=== PATIENT | female | born 1960 | race Caucasian/White ===

== ENCOUNTER 2016-10-24 13:24 | Emergency (ER) | payer MEDICAID ==
[~2016-10-24] VITALS: Ht 162.6 cm; Wt 110.2 kg
[2016-10-24 14:10] VITALS: BP_SYST 150
--- NOTE | 2016-10-24 14:17 | NUR ---
Patient to ER bed 6 for evaluation. Remained in W/C Report given to Ana.
--- NOTE | 2016-10-24 14:23 | NUR ---
Pt slipped on a toy this morning and twisted her left ankle, pt denies falling, loss of consciousness. Pt has swelling and redness to the left ankle and toes. Pt states she was walking earlier this morning and then took off her shoes and could not walk after that. No other injuries/complaints per pt or noted.
--- NOTE | 2016-10-24 14:25 | NUR ---
ER at bedside examining patient.
[2016-10-24] MEDS ORDERED: KETOROLAC TROMETHAMINE 60 MG/2 ML VIAL IM ONE (14:45)
--- NOTE | 2016-10-24 15:46 | NUR ---
Patient given written and verbal discharge instructions and verbalizes understanding. ER MD discussed with patient the results and treatment provided. Patient in stable condition. ID arm band removed. Rx of motrin given. Patient educated on pain management and to follow up with PMD. Pain Scale 2. Opportunity for questions provided and answered.
[2016-10-24 15:47] VITALS: BP_SYST 145
== END 2016-10-24 15:47 | disposition home or self-care (01) ==
LOC: SED 13:24
DX: S93.492A Sprain of other ligament of left ankle, initial encounter (principal); J45.909 Unspecified asthma, uncomplicated; K21.9 Gastro-esophageal reflux disease without esophagitis; E11.9 Type 2 diabetes mellitus without complications; I10 Essential (primary) hypertension; Z88.1 Allergy status to other antibiotic agents; Z88.2 Allergy status to sulfonamides; Z88.0 Allergy status to penicillin; W22.8XXA Striking against or struck by other objects, initial encounter; Y93.89 Activity, other specified; Y92.89 Other specified places as the place of occurrence of the external cause; Y99.8 Other external cause status
CPT/HCPCS: 73630; 96372; 99284; J1885

== ENCOUNTER 2017-10-14 13:02 | Emergency (ER) | payer MEDICAID ==
[~2017-10-14] VITALS: Ht 162.6 cm; Wt 116.1 kg
[2017-10-14 13:04] VITALS: BP_SYST 146
--- NOTE | 2017-10-14 13:06 | NUR ---
Placed in room 02 . Placed on cardiac rehabilitation specialist, blood pressure machine and pulse oximeter. To gown for exam. Side rails up.
--- NOTE | 2017-10-14 13:12 | NUR ---
Dr Mack at bedside examining patient
--- NOTE | 2017-10-14 13:13 | NUR ---
Pt brought by self, A&Ox4, pt presents to ER with intermittent cough ,SOB and pain on L arm, VS WNL, respirations even and unlabored, cap refill <3, afebrile.
[2017-10-14] MEDS ORDERED: ASPIRIN 81 MG TAB.CHEW PO ONE (13:15)
[2017-10-14] MEDS ORDERED: NITROGLYCERIN 1 INCH (GM) OINT. TP ONE (13:15)
[2017-10-14 13:36] LABS: BASOPHILS # (AUTO) 0.1 K/uL (0.0-0.2); BASOPHILS % (AUTO) 0.7 % (0.0-2.0); EOSINOPHILS # (AUTO) 0.2 K/uL (0.0-0.4); EOSINOPHILS % (AUTO) 2.4 % (0.0-4.0); HEMATOCRIT 44.8 % (36-48); HEMOGLOBIN 14.3 g/dL (12.0-16.0); LYMPHOCYTES # (AUTO) 1.8 K/uL (1.0-5.5); LYMPHOCYTES % (AUTO) 18.7 % (20.5-51.5); MEAN CORPUSCULAR HEMOGLOBIN 27 pg (27-31); MEAN CORPUSCULAR HGB CONC 32 % (32-36); MEAN CORPUSCULAR VOLUME 83 fL (79.0-98.0); MONOCYTES # (AUTO) 0.7 K/uL (0.0-1.0); MONOCYTES % (AUTO) 6.9 % (1.7-9.3); NEUTROPHILS # (AUTO) 6.8 K/uL (1.8-7.7); NEUTROPHILS % (AUTO) 71.3 % (40.0-70.0); PLATELET COUNT (AUTO) 299 K/uL (130-430); RED CELL DISTRIBUTION WIDTH 14.6 % (9.0-15.0); WHITE BLOOD COUNT (AUTO) 9.6 K/uL (4.8-10.8)
[2017-10-14 13:51] LABS: PROTHROMBIN TIME 9.9 SECS (9.5-12.5)
[2017-10-14 13:53] LABS: CALCIUM 9.7 mg/dL (8.4-11.0); CREATININE 0.56 mg/dL (0.55-1.30); POTASSIUM 3.7 mmol/L (3.5-5.1)
[2017-10-14 14:00] LABS: ALBUMIN 3.9 g/dL (3.4-4.8); TOTAL BILIRUBIN 0.5 mg/dL (0.0-1.0)
--- NOTE | 2017-10-14 14:07 | NUR ---
Pt ambulated to bathroom to collect urine
[2017-10-14] MEDS ORDERED: ALBUTEROL SULFATE 0.083% 2.5 MG/3 ML VIAL.NEB INH ONE (15:00)
--- NOTE | 2017-10-14 15:10 | NUR ---
Pt on stable condition, report given to Ana GRADY
[2017-10-14 15:16] LABS: BILIRUBIN,URINE NEGATIVE (NEGATIVE); BLOOD, URINE 1+ (NEGATIVE); CLARITY/URINE CLEAR (CLEAR); COLOR,URINE YELLOW (YELLOW); GLUCOSE,URINE NEGATIVE (NEGATIVE); KETONES,URINE NEGATIVE (NEGATIVE); LEUKOCYTE ESTERASE ,URINE 2+ (NEGATIVE); NITRITE, URINE NEGATIVE (NEGATIVE); PH,URINE 6.5 (5.0-8.0); PROTEIN URINE NEGATIVE (NEGATIVE); UROBILINOGEN,URINE 0.2 (0.2-1.0)
[2017-10-14 15:38] VITALS: BP_SYST 145
--- NOTE | 2017-10-14 15:38 | NUR ---
Patient given written and verbal discharge instructions and verbalizes understanding. ER MD discussed with patient the results and treatment provided. Patient in stable condition. ID arm band removed. IV catheter removed intact and dressing applied, no active bleeding. Rx of econazole given. Patient educated on pain management and to follow up with PMD. Pain Scale 0. Opportunity for questions provided and answered.
[2017-10-14 16:05] LABS: BACTERIA,URINE MODERATE /HPF (None Seen); MUCUS,URINE 2+ /LPF (None Seen)
== END 2017-10-14 15:38 | disposition home or self-care (01) ==
LOC: SED 13:02
DX: J06.9 Acute upper respiratory infection, unspecified (principal); B35.9 Dermatophytosis, unspecified; K21.9 Gastro-esophageal reflux disease without esophagitis; J45.909 Unspecified asthma, uncomplicated; E11.9 Type 2 diabetes mellitus without complications; I10 Essential (primary) hypertension; Z90.49 Acquired absence of other specified parts of digestive tract; Z88.1 Allergy status to other antibiotic agents; Z88.0 Allergy status to penicillin; Z88.2 Allergy status to sulfonamides; Z79.899 Other long term (current) drug therapy
CPT/HCPCS: 36415; 71045; 80053; 81000; 83880; 84484; 85025; 85610; 87086; 93005; 94640; 99285; J7613

== ENCOUNTER 2018-08-03 16:49 | Emergency (ER) | payer MEDICAID ==
[~2018-08-03] VITALS: Ht 162.6 cm; Wt 97.5 kg
[2018-08-03 17:27] VITALS: BP_SYST 159
--- NOTE | 2018-08-03 18:32 | NUR ---
Patient presented to ER with sore troat and ear pain. Patient A&Ox4, skin pink, respirations equal bilat, ambulatory to ER. Patient denies N/V/D, denies nasal congestion. Patient states sore throat started last week when carpet in her home was removed. Patient states she has "lost her voice" since last week.Patient states ear pain 9/10 started yesterday. Patient states she takes claritan daily. Patient staes she has a history of hypertension, asthma, and is "pre-diabetic.
--- NOTE | 2018-08-03 18:50 | NUR ---
MAYI Brown at bedside examining patient.
[2018-08-03 19:15] VITALS: BP_SYST 159
--- NOTE | 2018-08-03 19:15 | NUR ---
Patient given written and verbal discharge instructions and verbalizes understanding. ER MD discussed with patient the results and treatment provided. Patient in stable condition. ID arm band removed. Rx of Diabetic Tussin DM and Flonase nasal spray given. Patient educated on pain management and to follow up with PMD. Opportunity for questions provided and answered. Medication side effect fact sheet provided.
== END 2018-08-03 19:15 | disposition home or self-care (01) ==
LOC: SED 16:49
DX: J04.0 Acute laryngitis (principal); J45.909 Unspecified asthma, uncomplicated; K21.9 Gastro-esophageal reflux disease without esophagitis; E11.9 Type 2 diabetes mellitus without complications; I10 Essential (primary) hypertension; Z88.0 Allergy status to penicillin; Z88.1 Allergy status to other antibiotic agents; Z88.2 Allergy status to sulfonamides
CPT/HCPCS: 99283

== ENCOUNTER 2019-06-10 15:05 | Emergency (ER) | payer MEDICAID ==
[~2019-06-10] VITALS: Ht 162.6 cm; Wt 111.1 kg
[2019-06-10 15:10] VITALS: BP_SYST 135
--- NOTE | 2019-06-10 15:41 | NUR ---
Patient to ER bed 04 to gown for evaluation. Side rails up.
--- NOTE | 2019-06-10 15:48 | NUR ---
MAYI Shah [employer] LAYOUT WORKER at bedside examining patient.
--- NOTE | 2019-06-10 15:55 | NUR ---
pt arrives from home w/ c/o HAND 02/12. PT states that pain is unrelived by OTC meds. Pt also has N/V. Will continue to monitor.
[2019-06-10] MEDS ORDERED: KETOROLAC TROMETHAMINE 60 MG/2 ML VIAL IM ONE (16:00)
[2019-06-10] MEDS ORDERED: PROCHLORPERAZINE EDISYLATE 10 MG/2 ML VIAL IM ONE (16:00)
--- NOTE | 2019-06-10 16:17 | NUR ---
medicated the pt w/ Toradol and Compazine per MD hunter. Will reassess.
[2019-06-10 17:28] VITALS: BP_SYST 135
--- NOTE | 2019-06-10 17:29 | NUR ---
Patient given written and verbal discharge instructions and verbalizes understanding. ER MD discussed with patient the results and treatment provided. Patient in stable condition. ID arm band removed. Rx of Tramadol and Maxitrol given. Patient educated on pain management and to follow up with PMD. Pain Scale 3/10. Opportunity for questions provided and answered. Medication side effect fact sheet provided.
== END 2019-06-10 17:28 | disposition home or self-care (01) ==
LOC: SED 15:05
DX: G43.909 Migraine, unspecified, not intractable, without status migrainosus (principal); I10 Essential (primary) hypertension; E11.9 Type 2 diabetes mellitus without complications; K21.9 Gastro-esophageal reflux disease without esophagitis; J45.909 Unspecified asthma, uncomplicated; Z88.0 Allergy status to penicillin; Z88.1 Allergy status to other antibiotic agents; Z88.2 Allergy status to sulfonamides
CPT/HCPCS: 96372; 99283; J0780; J1885

== ENCOUNTER 2021-04-20 13:31 | Emergency (ER) | payer MEDICAID, OTHER, SELFPAY ==
[~2021-04-20] VITALS: Ht 162.6 cm; Wt 115.7 kg
[~2021-04-20 13:31] MED LIST: ALBMDI INH; AMLO5TAB4 PO; ASPI-1393 PO; CETI10CA20 PO; FLUT16SP16 NS; GABA300S PO; GLIM2TAB PO; IBUP-2018 PO; KETO60CR2 TP; LIP20 PO; METH-634 PO; MULT-1159 PO; OMEP20CA15 PO; TRIA15CR3 TP
[2021-04-20 13:37] VITALS: BP_SYST 153
--- NOTE | 2021-04-20 13:40 | NUR ---
Patient to ER bed 03 to gown for evaluation. Side rails up.
--- NOTE | 2021-04-20 13:42 | NUR ---
Pt brought by self, A&Ox4, pt presents to ER with R shoulder/ arm pain x 2 weeks, cap refill <3, VSS.
--- NOTE | 2021-04-20 14:05 | NUR ---
Dr Finn evaluating patient at bedside
[2021-04-20] MEDS ORDERED: KETOROLAC TROMETHAMINE 60 MG/2 ML VIAL IM ONE (14:15)
[2021-04-20] MEDS ORDERED: IBUP-1969 PO (14:21)
--- NOTE | 2021-04-20 15:28 | NUR ---
Patient given written and verbal discharge instructions and verbalizes understanding. ER MD discussed with patient the results and treatment provided. Patient in stable condition. ID arm band removed. Rx of ibuprofen given. Patient educated on pain management and to follow up with PMD. Pain Scale 1. Opportunity for questions provided and answered. Medication side effect fact sheet provided. accompained with spouse.
[2021-04-20 15:29] VITALS: BP_SYST 150
== END 2021-04-20 15:28 | disposition home or self-care (01) ==
LOC: SED 13:31
DX: S46.211A Strain of muscle, fascia and tendon of other parts of biceps, right arm, initial encounter (principal); M25.532 Pain in left wrist; I10 Essential (primary) hypertension; E11.9 Type 2 diabetes mellitus without complications; K21.9 Gastro-esophageal reflux disease without esophagitis; J45.909 Unspecified asthma, uncomplicated; Z88.0 Allergy status to penicillin; Z88.1 Allergy status to other antibiotic agents; Z88.2 Allergy status to sulfonamides; Z79.899 Other long term (current) drug therapy; X50.9XXA Other and unspecified overexertion or strenuous movements or postures, initial encounter; Y93.89 Activity, other specified; Y92.89 Other specified places as the place of occurrence of the external cause; Y99.8 Other external cause status
CPT/HCPCS: 73030; 73100; 96372; 99284; J1885

== ENCOUNTER → 2021-08-30 | Emergency (ER) | payer MEDICAID ==
[~2021-08-30] VITALS: Ht 162.6 cm; Wt 113.4 kg
[~2021-08-30] MED LIST changes: +ACET-73 PO; +IBUP-1969 PO; +IBUPROFEN 800 MG TABLET PO ONE; +LIDO700A30 TP; +LIDOCAINE PATCH 5% 1 EA TP ONE; +LIDOINT TP; +MORPHINE 4 MG INJ. 4 MG/ML VIAL IM ONE; +methocarbamoL 500 MG TABLET PO ONE
[2021-08-30 17:52] VITALS: BP_SYST 154
--- NOTE | 2021-08-30 22:58 | NUR ---
pt changed to a gown and taken to xray via wheelchair
--- NOTE | 2021-08-30 23:00 | NUR ---
Patient is a 7-year-old female history of asthma, diabetes, neuropathy presents to ED for neck pain and left shoulder pain from earlier today. 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 This occurred around 11:30 AM. In doing so, patient reports that the entire weight of the patient fell on her left side, estimated 265 pounds. Patient reports that she currently has severe pain to her left side of her neck as well as difficulty moving her left shoulder. She also has tenderness to palpation of her left upper chest. Patient took Tylenol without improvement of her symptoms. Denies midline neck pain, head injury, loss of consciousness, neck stiffness, radiculopathy, numbing or tingling, fall, weakness, decreased family manager strength. Patient is not on chronic pain management. Patient takes gabapentin 300 mg for her neuropathy.
[2021-08-31 00:55] VITALS: BP_SYST 141
== END | disposition short-term general hospital (02) ==
LOC: SED 17:04
DX: S16.1XXA Strain of muscle, fascia and tendon at neck level, initial encounter (principal); S46.911A Strain of unspecified muscle, fascia and tendon at shoulder and upper arm level, right arm, initial encounter; M54.2 Cervicalgia; M25.512 Pain in left shoulder; I10 Essential (primary) hypertension; K21.9 Gastro-esophageal reflux disease without esophagitis; Z88.2 Allergy status to sulfonamides; Z88.0 Allergy status to penicillin; Z88.8 Allergy status to other drugs, medicaments and biological substances; X58.XXXA Exposure to other specified factors, initial encounter; Y93.89 Activity, other specified; Y92.89 Other specified places as the place of occurrence of the external cause; Y99.8 Other external cause status
CPT/HCPCS: 72040; 73030; 82962; 96372; 99284; J2270